=== PATIENT | male | born 1995 | race Caucasian/White ===

== ENCOUNTER 2016-08-26 10:52 | Emergency (ER) | payer OTHER ==
[~2016-08-26] VITALS: Ht 188 cm; Wt 145.2 kg
[~2016-08-26 10:52] MED LIST: FLORINEF ACETA0.1 MG PO; HYOSCYAMINE0.125 M2 PO; KEFLEX500 MG PO; MOTRIN600 MG PO; PEPCID20 MG PO; PERCOCET 5/31 TABLET PO; PROMETHAZINE HC25 M1 PO; PROZAC10 MG PO; ZYRTEC10 M2 PO
[2016-08-26 11:31] VITALS: BP 125/75
== END 2016-08-26 11:32 | disposition home or self-care (01) ==
LOC: EME 10:52
DX: S09.90XA Unspecified injury of head, initial encounter (principal); R55 Syncope and collapse; W01.198A Fall on same level from slipping, tripping and stumbling with subsequent striking against other object, initial encounter; Y99.0 Civilian activity done for income or pay; J45.909 Unspecified asthma, uncomplicated
CPT/HCPCS: 99281; 99282